=== PATIENT | female | born 1955 | race African-American/Black ===

== ENCOUNTER 2016-06-05 07:35 | Day surgery (SDC) | payer BC, OTHER ==
[2016-06-04 10:25] VITALS: BMI 24.7
[~2016-06-05 07:35] MED LIST: LACTATED RINGERS 1,000 ML IV SCH; LIDOCAINE 1% 20 ML VIAL (10MG/ML) FOR IV START INTRADERMA PRN
[2016-06-05] MEDS ORDERED: LACTATED RINGERS 1,000 ML IV ONE (07:38)
[2016-06-05 07:47] VITALS: TEMP 97.8
[2016-06-05] MEDS ORDERED: LIDOCAINE 1% INJ 10MG/ML (20 ML MDV) ONE (07:51)
[2016-06-05] MEDS ORDERED: PROPOFOL 10 MG/ML 20 ML VIAL IV ONE (07:51)
[2016-06-05 07:54] LABS: Glucose,Whole Blood 145 mg/dL (75-99)
--- NOTE | 2016-06-05 07:54 | P.GSHP ---
History of Present Illness H&P Date: 06/05/16 Chief Complaint: Screening colonoscopy This is a 60-year-old female referred from Dr. Alisson Champion. Patient presents today for screening colonoscopy. She denies any significant GI complaints. Past Medical History Past Medical History: Diabetes Mellitus, Hyperlipidemia, Hypertension Additional Past Medical History / Comment(s): HX OF BENIGN TUMORS History of Any Multi-Drug Resistant Organisms: None Reported Past Surgical History: Hysterectomy Additional Past Surgical History / Comment(s): COLONOSCOPY Past Anesthesia/Blood Transfusion Reactions: No Reported Reaction Past Psychological History: No Psychological Hx Reported Smoking Status: Never smoker Past Alcohol Use History: None Reported Past Drug Use History: None Reported - Past Family History Sister(s) Family Medical History: Cancer Additional Family Medical History / Comment(s): 2 SISTERS WITH CANCER Brother(s) Family Medical History: Cancer Medications and Allergies Home Medications Medication Instructions Recorded Confirmed Type Atorvastatin Calcium [Lipitor] 20 mg PO HS 06/04/16 06/05/16 History Ramipril [Altace] 5 mg PO DAILY 06/04/16 06/05/16 History metFORMIN HCL [metFORMIN HCL ER] 750 mg PO BID 06/04/16 06/05/16 History Allergies Allergy/AdvReac Type Severity Reaction Status Date / Time No Known Allergies Allergy Verified 06/05/16 07:43 Surgical - Exam Vital Signs Temp Pulse Resp BP 97.8 F 94 18 153/81 06/05/16 07:46 06/05/16 07:46 06/05/16 07:46 06/05/16 07:46 - General well developed, no distress - Eyes PERRL - ENT normal pinna - Neck no masses - Respiratory normal expansion - Cardiovascular Rhythm: regular - Abdomen Abdomen: soft, non tender Assessment and Plan Plan: We'll perform screening colonoscopy.
--- NOTE | 2016-06-05 08:07 | P.OP ---
Date of Procedure: 06/05/16 Preoperative Diagnosis: Screening colonoscopy Postoperative Diagnosis: Normal colon Procedure(s) Performed: Colonoscopy Anesthesia: MAC Surgeon: Lionel Rodriguez Pathology: none sent Condition: stable Disposition: PACU Description of Procedure: PROCEDURE: The patient was placed on the endoscopy table in the lateral position. Digital rectal examination was performed which revealed no abnormalities. Flexible colonoscope was then placed in the patient's anus and passed throughout the entire colon. The ileocecal valve was visualized. The cecum, ascending, transverse, descending and sigmoid colon were normal. The rectum was normal as well. There were no masses, polyps or diverticula noted in the entire colon. SUMMARY OF FINDINGS: Normal colonoscopy.
[2016-06-05 08:29] LABS: Glucose,Whole Blood 166 mg/dL (75-99)
[2016-06-05 08:46] VITALS: BP 144/81; PULSE 69; RESP 18
== END 2016-06-05 09:32 | disposition home or self-care (01) ==
LOC: ORWHC2ENDO 07:35
PROVIDERS: ATTEND Surgery
DX: Z12.11 Encounter for screening for malignant neoplasm of colon (principal); I10 Essential (primary) hypertension; E11.9 Type 2 diabetes mellitus without complications; E78.5 Hyperlipidemia, unspecified; Z79.84 Long term (current) use of oral hypoglycemic drugs; Z79.899 Other long term (current) drug therapy
CPT/HCPCS: J2001; J2704; G0121

== ENCOUNTER → 2020-12-05 | Outpatient (CLI) | payer OTHER ==
--- NOTE | 2020-12-05 15:53 | XR ---
EXAMINATION TYPE: XR Hip Complete RT DATE OF EXAM: 12/05/2020 CLINICAL HISTORY: Right hip pain for a few months TECHNIQUE: AP and frogleg views of the right hip are obtained. COMPARISON: None. FINDINGS: There is no acute fracture or dislocation of the right hip. The hip joint space demonstra srinath mild degenerative spurring. The overlying soft tissue appears unremarkable. 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
== END | disposition home or self-care (01) ==
LOC: RADXRMAIN 11:24
PROVIDERS: ATTEND Physician Assistant
DX: M16.11 Unilateral primary osteoarthritis, right hip (principal)
CPT/HCPCS: 73502

== ENCOUNTER → 2022-06-04 | Outpatient (CLI) | payer MEDICARE, OTHER ==
--- NOTE | 2022-06-05 19:38 | MM ---
Reason for Exam: Screening (asymptomatic). Last mammogram was performed 8 year(s) and 3 month(s) ago. Patient History: Menarche at age 13. First Full-Term at age 27. Hysterectomy at age 42. Postmenopausal. Risk Values: Casandra 5 year model risk: 1.8%. NCI Lifetime model risk: 6.9%. Prior Study Comparison: 03/20/2009 Bilateral Screening Mammogram, [facility]. 04/10/2009 Right Diagnostic Mammogram, [facility]. 03/24/2014 Bilateral Diagnostic Mammogram, [facility]. Tissue Density: There are scattered fibroglandular densities. Findings: Analyzed By CAD. Chronic nodularity medial posterior right cc view. Asymmetric density anterior depth inferior left MLO view does not persist on 3-D images. No significant change from prior exams. Overall Assessment: Benign, BI-RAD 2 Management: Screening Mammogram of both breasts in 1 year. 1. Patient should continue monthly self breast exams. 2. A clinical breast exam by your physician is recommended on an annual basis. 3. This exam should not preclude additional follow-up of suspicious palpable abnormalities. Electronically signed and approved by: Juancho Hemphill M.D. Radiologist
== END | disposition home or self-care (01) ==
LOC: RADMAMWWP 11:25
PROVIDERS: ATTEND Family Medicine
DX: Z12.31 Encounter for screening mammogram for malignant neoplasm of breast (principal); Z78.0 Asymptomatic menopausal state
CPT/HCPCS: 77063; 77067